=== PATIENT | male | born 1945 | race Caucasian/White ===

== ENCOUNTER 2021-05-31 16:06 | Inpatient (IN) | payer MEDICARE, SELFPAY ==
[~2021-05-31] VITALS: Ht 170.2 cm; Wt 107.5 kg
[2021-05-31 16:08] VITALS: BP 190/120
[2021-05-31] MEDS ORDERED: ALBUTEROL 0.083% 2.5 MG/3 ML NEBU INH ONE (16:10)
[2021-05-31] MEDS ORDERED: IPRATROPIUM 0.02% 0.5 MG/2.5 ML NEBU INH ONE (16:10)
[2021-05-31] MEDS ORDERED: methylPREDNISolone SS 125 MG/2 ML VIAL IVP ONE (16:10)
[2021-05-31] MEDS ORDERED: FUROSEMIDE 40 MG/4 ML VIAL IVP ONE (16:15)
--- NOTE | 2021-05-31 16:18 | NUR ---
[facility] GIVEN ORDERED ENCOURAGED PATIENT FOR INTERMITTENT DEEP BREATHING DURING THERAPY
--- NOTE | 2021-05-31 16:28 | NUR ---
POST THERAPY PATIENT REFUSED TO PARTICIPATE IN BIPAP TO MASK DR. AMY SANCHEZ NOTIFIED
--- NOTE | 2021-05-31 16:30 | NUR ---
75 Y/O MALE BIBA FROM CLINIC C/O RR DISTRESS X1DAY. PER FIRE PT HAD WHEEZING SPO2 86% ON RA PLACED ON 2 L NC SPO2 97%. EN ROUTE GIVEN ALBUTEROL TX, IV ESTABLISHED TO LEFT AC 20G. PER EMT PT HAD 5 BREATHING TX AT HOME PRIOR TO GOING TO CLINIC, GIVEN A BREATHING TX IN CLINIC PRIOR TO [facility] ARRIVAL. ON ASSESSMENT PT LUNGS ARE DIMINISHED AT THE BASES, WHEEZING THROUGHOUT. PT ON NON-REBREATHER 10L WITH MD, RT AND RN AT PT BEDSIDE FOR FURTHER ASSESSMENT. DENIES N/V. DENIES FEVER/CHILLS. PMH: COPD, CHF, ASTHMA, PACEMAKER VENTRICULAR PACED, HLD (SEE CHART FOR EXTENSIVE HX) ALLERGIES: AMPICILLIN
[2021-05-31 17:00] LABS: BASOPHILS % (AUTO) 0.1 % (0.0-2.0); HEMATOCRIT 27.4 % (36-52); HEMOGLOBIN 8.9 g/dL (12.0-18.0); LYMPHOCYTES # (AUTO) 0.2 K/uL (2.0-11.5); LYMPHOCYTES % (AUTO) 2.4 % (20.5-51.1); MEAN CORPUSCULAR HEMOGLOBIN 33 pg (27-31); MEAN CORPUSCULAR HGB CONC 33 g/dL (33-37); MEAN CORPUSCULAR VOLUME 100.7 fL (80-94); MONOCYTES # (AUTO) 0.3 K/uL (0.8-1.0); NEUTROPHILS # (AUTO) 7.3 K/uL (1.8-7.7); NEUTROPHILS % (AUTO) 93.5 % (42.2-75.2); PLATELET COUNT (AUTO) 98 K/uL (140-450); RED BLOOD CELL COUNT(AUTO) 2.72 MIL/uL (4.20-6.10); RED CELL DISTRIBUTION WIDTH 17.6 % (11.6-13.7); WHITE BLOOD COUNT (AUTO) 7.8 K/uL (4.8-10.8)
[2021-05-31 17:14] LABS: ALBUMIN 3.4 g/dL (3.4-5.0); ANION GAP 15.2 (8-16); ASPARTATE AMINOTRANSFERASE 39 U/L (15-37); CARBON DIOXIDE 25.3 mmol/L (21-32); CHLORIDE 107 mmol/L (98-107); GLUCOSE 173 mg/dL (74-106); POTASSIUM 5.5 mmol/L (3.5-5.1); SODIUM SERUM 142 mmol/L (136-145); TOTAL BILIRUBIN 0.3 mg/dL (0.0-1.0)
[2021-05-31 17:15] LABS: UREA NITROGEN, BLOOD 72 mg/dL (7-18)
--- NOTE | 2021-05-31 17:23 | NUR ---
OTILIA made aware of critical Trop and BUN
[2021-05-31] MEDS ORDERED: ASPIRIN 81 MG TAB.CHEW PO ONE (17:30)
--- NOTE | 2021-05-31 17:30 | NUR ---
Note kinjal in EDM - 05/31/21 at 1746 by [facility] Patient will be admitted to care of Dr Ladd. Admited to ICU. Will go to room 02. Belongings list completed. Report to Erick RINCON. All valuables and belongings with pt at this time.
[2021-05-31] MEDS ORDERED: HEPARIN PER PHARMACY MC STA ×2 (17:35→18:07)
[2021-05-31 17:45] VITALS: BP 117/76
--- NOTE | 2021-05-31 17:45 | NUR ---
RT at bedside to place pt on BiPap at this time
--- NOTE | 2021-05-31 17:51 | NUR ---
Pharmacy called for Heparin drip indication, per ERMD drip indication ACS
[2021-05-31] MEDS ORDERED: HEPARIN PER PHARMACY MC PRN ×3 (17:55→18:50)
[2021-05-31 18:37] VITALS: BP 117/76
[2021-05-31 18:41] LABS: PROTHROMBIN TIME 9.9 secs (10.8-13.4)
[2021-05-31] MEDS ORDERED: hePARIN / DEXT 5% PREMIX 250 ML IV SCH (18:55)
--- NOTE | 2021-05-31 19:19 | NUR ---
Pt report given to Chaparro RINCON. Transfer of care at this time.
--- NOTE | 2021-05-31 20:00 | NUR ---
Contacted pharmacy for correct heparin dosage. Verified patient's weight 108kg. AWaiting for adjusted dose per pharmacy protocol.
--- NOTE | 2021-05-31 20:56 | NUR ---
Received a callback from pharmacy, per pharmacist to start bolus at 5000units according to ideal body weight 83.2kg and to start drip at 1000units per hoour.
--- NOTE | 2021-05-31 21:00 | NUR ---
patient moved to tele, VS stable on tansport. Bedside hand-off given to Noble RINCON.
[2021-05-31] MEDS ORDERED: DOCUSATE SODIUM 100 MG GELCAP PO PRN (21:55)
[2021-05-31] MEDS ORDERED: ONDANSETRON 4 MG/2 ML VIAL IM/IVP PRN (21:55)
[2021-05-31] MEDS ORDERED: POTASSIUM CHLORIDE 10 MEQ TABER PO PRN (21:55)
[2021-05-31] MEDS ORDERED: ZOLPIDEM 5 MG TAB PO PRN (21:55)
[2021-05-31] MEDS ORDERED: guaiFENesin DM 200/20 MG-10 ML 10 ML UDC PO PRN (21:55)
[2021-05-31] MEDS ORDERED: ACETAMINOPHEN 325 MG TAB PO PRN (21:55)
[2021-05-31] MEDS ORDERED: SODIUM ZIRCONIUM CYCLOSILICATE 10 GM POWD.PACK PO SCH (22:00)
[2021-05-31] MEDS: FUROSEMIDE 20 MG/2 ML VIAL IVP SCH (22:05)
[2021-05-31] MEDS ORDERED: ALBUTEROL SULFATE/IPRATROPIU 3 ML SOL IH PRN (22:05)
[2021-05-31] MEDS ORDERED: cefTRIAXone 1,000 MG VIAL ONE (22:51)
[2021-06-01] VITALS: BP 127/83
--- NOTE | 2021-06-01 01:33 | NUR ---
Notified by LAB that TROPONIN is 17.77. Text-Notified Dr. East. VS: 127/83, 94, 97.8, 18.
[2021-06-01 03:10] LABS: BASOPHILS % (AUTO) 0.1 % (0.0-2.0); HEMATOCRIT 25.9 % (36-52); HEMOGLOBIN 8.4 g/dL (12.0-18.0); LYMPHOCYTES # (AUTO) 0.1 K/uL (2.0-11.5); LYMPHOCYTES % (AUTO) 2.6 % (20.5-51.1); MEAN CORPUSCULAR HEMOGLOBIN 33 pg (27-31); MEAN CORPUSCULAR HGB CONC 33 g/dL (33-37); MEAN CORPUSCULAR VOLUME 100.2 fL (80-94); MONOCYTES # (AUTO) 0.2 K/uL (0.8-1.0); MONOCYTES % (AUTO) 4.3 % (1.7-9.3); NEUTROPHILS # (AUTO) 5.3 K/uL (1.8-7.7); PLATELET COUNT (AUTO) 87 K/uL (140-450); RED BLOOD CELL COUNT(AUTO) 2.59 MIL/uL (4.20-6.10); RED CELL DISTRIBUTION WIDTH 17.4 % (11.6-13.7); WHITE BLOOD COUNT (AUTO) 5.7 K/uL (4.8-10.8)
[2021-06-01 03:36] LABS: ANION GAP 12.7 (8-16); CARBON DIOXIDE 27.6 mmol/L (21-32); CHLORIDE 107 mmol/L (98-107); CREATININE 1.9 mg/dL (0.6-1.3); GLUCOSE 175 mg/dL (74-106); POTASSIUM 5.3 mmol/L (3.5-5.1); SODIUM SERUM 142 mmol/L (136-145)
[2021-06-01 03:37] LABS: UREA NITROGEN, BLOOD 72 mg/dL (7-18)
[2021-06-01] MEDS: hePARIN / DEXT 5% PREMIX 250 ML IV SCH ×3 (03:58→17:21)
[2021-06-01 04:51] LABS: CHOL/HDL RATIO 3.4 (1-4.5); MAGNESIUM 2.1 mg/dL (1.8-2.4); PHOSPHORUS 4.1 mg/dL (2.5-4.9)
[2021-06-01 04:52] LABS: FREE T4 (FREE THYROXINE) 0.97 ng/dL (0.76-1.46); THYROID STIMULATING HORMONE 0.49 uIU/mL (0.34-3.74)
[2021-06-01] MEDS: HYDROcodone/APAP 7.5/325 MG 1 TAB PO PRN ×4 (06:09→21:59)
[2021-06-01] MEDS: ALBUTEROL SULFATE/IPRATROPIU 3 ML SOL IH SCH ×3 (07:45→19:23)
[2021-06-01] MEDS ORDERED: MORPHINE SULFATE 4 MG/ML SYR IVP PRN (07:45)
[2021-06-01 08:00] VITALS: BP 136/77
--- NOTE | 2021-06-01 08:00 | NUR ---
RECEIVED PATIENT, AOX4, VPACED, RESPIRATIONS EVEN AND UNLABORED ON 3L NC. EXPERIENCES DYSPNEA ON EXERTION, INCREASED TO 4L FOR COMFORT. PATIENT REPORTS PAIN IN LOWER BACK, RATED 9/10, PRN MEDICATION GIVEN. SITTING IN CHAIR. +2 EDEMA NOTED IN BILATERAL BASES. HEPARIN GTT INFUSING AT 11.8 ML/HOUR, NO SIGNS OF BLEEDING. NEXT PTT AT 10AM. WILL CONTINUE TO MONITOR.
[2021-06-01] MEDS: FUROSEMIDE 20 MG/2 ML VIAL IVP SCH (08:10)
[2021-06-01] MEDS: PANTOPRAZOLE 40 MG TABEC PO SCH (08:10)
--- NOTE | 2021-06-01 09:17 | NUR ---
PATIENT HAS BEEN SCREENED AND CATEGORIZED MODERATE NUTRITION RISK. PATIENT WILL BE SEEN WITHIN 3-5 DAYS OF ADMISSION. [address]
--- NOTE | 2021-06-01 10:00 | NUR ---
RESTING COMFORTABLY IN BED, DENIES SOB. CLARIFIED WITH DR HUDSON AND DR RIVAS, CONTACT CENTER REP TO CONTINUE HEPARIN GTT DESPITE PLATELET COUNT BEING LOW. DR RIVAS WILL EVALUATE WHEN HE COMES IN TODAY.
[2021-06-01 11:03] LABS: APPEARANCE,URINE CLEAR (CLEAR); BILIRUBIN,URINE NEGATIVE (NEGATIVE); BLOOD, URINE NEGATIVE (NEGATIVE); COLOR,URINE YELLOW (YELLOW); LEUKOCYTE ESTERASE ,URINE NEGATIVE (NEGATIVE); NITRITE, URINE NEGATIVE (NEGATIVE); PH,URINE 5.5 (5.0-9.0); UGLUCOSE NEGATIVE (NEGATIVE)
[2021-06-01 12:00] VITALS: BP 133/73
[2021-06-01 12:38] LABS: CALCIUM OXALATE CRYSTALS,UR None Seen /HPF (None Seen); COARSE GRANULAR CASTS,URINE None Seen /LPF (None Seen); FINE GRANULAR CASTS,URINE None Seen /LPF (None Seen); HYALINE CASTS, URINE None Seen /LPF (None Seen); OTHER CASTS, URINE None Seen /LPF (None Seen); OTHER CRYSTALS,URINE None Seen /HPF (None Seen); RBC,URINE 0-5 /HPF (0-5); RED BLOOD CELL CASTS,URINE None Seen /LPF (None Seen); TRICHOMONAS,URINE None Seen /HPF (None Seen); TRIPLE PHOSPHATE CRYSTAL,UR None Seen /HPF (None Seen); URIC ACID CRYSTALS,URINE None Seen /HPF (None Seen); URINE AMORPHOUS URATE None Seen /HPF (None Seen); WAXY CASTS,URINE None Seen /LPF (None Seen); WBC,URINE 0-5 /HPF (0-5); YEAST,URINE None Seen /HPF (None Seen)
[2021-06-01 12:50] LABS: BARBITURATE, URINE NEGATIVE ng/ml (NEG <=200); BENZODIAZEPINE, URINE NEGATIVE ng/mL (NEG <=200); CANNABINOID, URINE NEGATIVE ng/mL (NEG <=50); COCAINE, URINE NEGATIVE ng/mL (NEG <=300); OPIATE, URINE POSITIVE ng/mL (NEG <=2000); PHENCYCLIDINE SCREEN,URINE NEGATIVE ng/mL (NEG <=25)
--- NOTE | 2021-06-01 13:02 | NUR ---
NOTIFIED BY LAB THAT TROPONIN WAS ELEVATED, DR RIVAS MADE AWARE.
--- NOTE | 2021-06-01 13:45 | NUR ---
DC PLANNIN YRS OLD MALE PATIENT WAS ADMITTED FROM HOME WITH A DX OF NSTEMI M ACUTE CHF, AND COPD . PATIENT HAS A HX OF COPD ASTHMA , CKD WITH PACEMAKER AND HTN. CXR SHOWED LOW LUNG VOLUME WITH PERIHILAR EDEMA/INFILTRATES. RAPID COVID TEST NEGATIVE. ADMINISTERED HEPARIN DRIP, IV ABX ROCEPHIN AND LASIX IV. CONSULTED WITH CARDIO AND NEPHRO. CALLED [place] [phone] LEFT A MESSAGE FOR CM. DC PLAN TO TRANSFER TO [facility] WHEN BED AVAILABLE. Addendum: 06/01/21 at 1411 by Kristie Santos RN DC PLANNING: CALLED [facility] [phone] SPOKE WITH ANTONIO NOTCHING PRESS OPERATOR STATED RECEIVED ALL THE REQUEST FOR HIGHER LEVEL OF CARE. PROVIDE UNIT NUMBER AND MINA RIVAS'S CELL PHONE FOR [facility] . GAVIN WILL BE THE CM AND WILL ARRANGE THE TRANSFER. ANTONIO PROVIDE THE AUTH # [id number] FOR HOSPITAL STAY. NOTIFIED PATIENT , TOI RINCON AND DR RIVAS. CM TO FOLLOW Addendum: 06/01/21 at 1458 by Kristie Santos RN DC PLANNING: SPOKE WITH PATIENT REGARDING TRANSFER TO [facility]. PT STATED PREFERRED TO GO TO [facility] IF THEY DON'T HAVE A BED HE RATHER STAY AT [facility]. NOTIFIED [facility] THERAPY TEACHER NAME ANASTASIYA STATED WILL SUBMIT THE REQUEST TO KATY Chacon CM TO FOLLOW
[2021-06-01] MEDS: ECOTRIN 81 MG TABEC PO SCH (13:48)
[2021-06-01] MEDS: ATORVASTATIN 80 MG TAB PO SCH (13:48)
--- NOTE | 2021-06-01 14:00 | NUR ---
PATIENT COMPLAINS OF PAIN IN BACK, VISITORS AT BEDSIDE. PRN NORCO GIVEN WITH RELIEF. TOLERATING MEALS WELL WITH NO NAUSEA/VOMITING. OK TO CONTINUE HEPARIN GTT PER DR RIVAS. FOLLOWING UP ON PTT RESULTS
[2021-06-01 16:00] VITALS: BP 135/69
--- NOTE | 2021-06-01 16:01 | NUR ---
INCREASED HEPARIN GTT TO 15.1. PTT REDRAW AT 10 PM.
[2021-06-01] MEDS ORDERED: FUROSEMIDE 40 MG/4 ML VIAL IVP SCH (17:00)
[2021-06-01] MEDS: hydrALAZINE 10 MG TAB PO SCH (17:15)
[2021-06-01] MEDS: ISOSORBIDE DINITRATE 10 MG TAB PO SCH (17:16)
--- NOTE | 2021-06-01 17:55 | NUR ---
PATIENT IS DIURESING WELL, COMPLAINS OF PAIN IN BACK, PRN NORCO GIVEN. NO SOB AT THIS TIME. SITTING UP IN CHAIR. WILL CONT TO MONITOR.
[2021-06-01 18:28] LABS: APPEARANCE,URINE CLEAR (CLEAR); BILIRUBIN,URINE NEGATIVE (NEGATIVE); BLOOD, URINE NEGATIVE (NEGATIVE); COLOR,URINE YELLOW (YELLOW); LEUKOCYTE ESTERASE ,URINE NEGATIVE (NEGATIVE); NITRITE, URINE NEGATIVE (NEGATIVE); UGLUCOSE NEGATIVE (NEGATIVE)
[2021-06-01 18:47] LABS: ALBUMIN 3.3 g/dL (3.4-5.0); ANION GAP 13.7 (8-16); ASPARTATE AMINOTRANSFERASE 50 U/L (15-37); CARBON DIOXIDE 30.2 mmol/L (21-32); CHLORIDE 105 mmol/L (98-107); CREATININE 1.9 mg/dL (0.6-1.3); GLUCOSE 129 mg/dL (74-106); PHOSPHORUS 3.9 mg/dL (2.5-4.9); POTASSIUM 4.9 mmol/L (3.5-5.1); SODIUM SERUM 144 mmol/L (136-145); TOTAL BILIRUBIN 0.3 mg/dL (0.0-1.0)
[2021-06-01 18:50] LABS: UREA NITROGEN, BLOOD 73 mg/dL (7-18)
--- NOTE | 2021-06-01 19:20 | NUR ---
RECEIVED PT SITTING ON THE BEDSIDE CHAIR , AAOX4 , IV SITE INTACT AND PATENT , NO COMPLAIN MADE AT THIS TIME , ON HEP DRIP - NO S/X OF BLEEDING AT THIS TIME - U.O ON URINAL - CLEAR . URINAL / CALL LIGHT WITHIN REACH , ON O2 AT 4LPM/NC - O2 SAT WNL . ON SAFETY / FALL PREVENTION PROTOCOL . REMINDS HIM USE CALL LIGHT WHENEVER HE NEEDED HELP . ON TELE MONITOR - WILL CONT. TO MONITOR .
[2021-06-01 20:00] VITALS: BP 122/79
[2021-06-01] MEDS: FUROSEMIDE 40 MG/4 ML VIAL IVP SCH (20:30)
--- NOTE | 2021-06-01 21:00 | NUR ---
C/O VU - WILL MEDICATE , ON TELE MONITOR , WILL CONT. TO MONITOR . EDILBERTO A LOT Addendum: 06/02/21 at 0045 by Suzy Jarrell RN HE RATING THE PAIN 6 . - PAVAN
--- NOTE | 2021-06-01 21:35 | NUR ---
C/O NOSE BLEEDING , THERE IS 2 SHEET OF TISSUE PAPER AT BEDSIDE FULL OF BLOOD - HE SAID THAT IS FROM HIS NOSE - CHECK THE NOSE THERE IS MIN. BLEEDING , - WILL REFER TO - FOR JULIANNE WATCH . Addendum: 06/02/21 at 0126 by Suzy Jarrell RN PER DR. MCKAY - MENA HEP DRKT FOR A WHILE . WOF ACTIVE BLEEDING .- BP WNL . Addendum: 06/02/21 at 0127 by Suzy Jarrell RN EDILBERTO VALDIVIA - U.O - YELLOW CLEAR .
--- NOTE | 2021-06-01 23:08 | NUR ---
RELAYED TO DR. MCKAY THE LATEST aPTT - NO FURTHER ORDERS YET - HEP DRIP STILL ON HOLD - CHARGE NURSE AWARE ABOUT IT . WILL CONT. TO MONITOR
[2021-06-01] MEDS: carvediloL 6.25 MG TAB PO SCH (23:10)
--- NOTE | 2021-06-01 23:20 | NUR ---
BP RE CHECK -
[2021-06-02] VITALS: BP 98/67
--- NOTE | 2021-06-02 | NUR ---
ROUNDS , FOUND BED SIDE RAILS ON THE LEFT SIDE DOWN - I TRY SIDE RAIL LIFT UP - BUT PT IS REFUSE SIDE RAIL UP - EMPHASIZE TP PT THE IMPORTANCE OF SIDE RAILS UP - BUT STILL PT REFUSE SIDE RAIL UP - FOR CLOSELY WATCH . CALL LIGHT WITHIN REACH .
--- NOTE | 2021-06-02 01:22 | NUR ---
SLEEPING , CHEST RISE AND FALL EQUALLY , CALL LIGHT/ URINALS WITHIN REACH , WILL CONT. TO MONITOR . ON TELE MONITOR.
--- NOTE | 2021-06-02 02:57 | NUR ---
CALLED TO BEDSIDE BY RN. ASSESSED PT, NO WHEEZING ON AUSCULTATION, NO WOB, PT STATED HE FEELS HE IS HAVING HEADACHE. RN NOTIFIED.
--- NOTE | 2021-06-02 03:11 | NUR ---
ROUNDS , PT SLEEPING , CHEST RISE AND FALL EQUALLY , WILL CONT . TO MONITOR.
[2021-06-02 04:00] VITALS: BP 117/76
[2021-06-02] MEDS: HYDROcodone/APAP 7.5/325 MG 1 TAB PO PRN ×2 (04:56→08:26)
--- NOTE | 2021-06-02 04:56 | NUR ---
C/O VU , BP 117/76 - WILL MEDICATE FOR PAIN , THERE IS STREAKED BLOOD FROM THE NOSE - STILL FOR CLOSELY WATCH , STILL HEP. DRIP ON HOLD . Addendum: 06/02/21 at 0510 by Suzy Jarrell RN ROGERIO BROWNE.
[2021-06-02 05:44] LABS: BASOPHILS % (AUTO) 0.4 % (0.0-2.0); EOSINOPHILS % (AUTO) 0.3 % (0.0-4.0); HEMATOCRIT 27.4 % (36-52); HEMOGLOBIN 8.8 g/dL (12.0-18.0); LYMPHOCYTES # (AUTO) 0.5 K/uL (2.0-11.5); LYMPHOCYTES % (AUTO) 5.3 % (20.5-51.1); MEAN CORPUSCULAR HEMOGLOBIN 32 pg (27-31); MEAN CORPUSCULAR HGB CONC 32 g/dL (33-37); MEAN CORPUSCULAR VOLUME 100.7 fL (80-94); MONOCYTES # (AUTO) 0.7 K/uL (0.8-1.0); MONOCYTES % (AUTO) 7.9 % (1.7-9.3); NEUTROPHILS % (AUTO) 86.1 % (42.2-75.2); PLATELET COUNT (AUTO) 102 K/uL (140-450); RED BLOOD CELL COUNT(AUTO) 2.72 MIL/uL (4.20-6.10); WHITE BLOOD COUNT (AUTO) 9.2 K/uL (4.8-10.8)
[2021-06-02 05:55] LABS: ANION GAP 13.8 (8-16); CARBON DIOXIDE 31.9 mmol/L (21-32); CHLORIDE 103 mmol/L (98-107); CREATININE 1.9 mg/dL (0.6-1.3); GLUCOSE 125 mg/dL (74-106); POTASSIUM 4.7 mmol/L (3.5-5.1); SODIUM SERUM 144 mmol/L (136-145)
[2021-06-02 06:04] LABS: UREA NITROGEN, BLOOD 78 mg/dL (7-18)
--- NOTE | 2021-06-02 06:30 | NUR ---
BP 122/87 - WILL GIVE LASIX SLOWLY IV PUSH ORDERED - WILL CONT. TO MONITOR - CALL LIGHT WITHIN REACH , SITTING ON THE BEDSIDE CHAIR - PT SAID NO DIZZINESS .
[2021-06-02] MEDS: FUROSEMIDE 40 MG/4 ML VIAL IVP SCH (06:39)
--- NOTE | 2021-06-02 07:13 | NUR ---
GENEVIEVE CALLED ( PAT - THE MANAGER [employer] SAL[employer] ) JUST GOT THE LATEST V/S - BP 122/87 , CA 101 , RR 22 - O2 SAT 99% . T 98.8 .
--- NOTE | 2021-06-02 07:18 | NUR ---
ENDORSED - PT - STABLE .
--- NOTE | 2021-06-02 07:20 | NUR ---
RECEIVED REPORT FROM WIRE COILER MACHINE OPERATOR NURSE FOR CONTINUITY OF CARE. PT IS AWAKE AND ALERT. A&OX4. ON 4L O2 NC WITH BREATHING UNLABORED. AMBULATES INDEPENDENTLY. URINAL AT BEDSIDE FOR VOIDING. IVS ARE INTACT IN THE RIGHT HAND 24 GAUGE AND LEFT AC 20 GAUGE TKO. HEPARIN DRIP NO LONGER INFUSING PER WIRE COILER MACHINE OPERATOR NURSE LIFT MECHANIC DOCTOR STOPPED DRIP DUE TO NOSE BLEED. PT IS STABLE. PLAN OF CARE DISCUSSED.
--- NOTE | 2021-06-02 07:45 | NUR ---
RECEIVED CALL FROM ER TRANSPORT NURSE [facility]. PROVIDED REPORT AND INFORMED HIM OF THE HEPARIN DRIP BEING STOPPED AT 2300 PER GRADES 1 THROUGH 6 TEACHER NURSE. HE STATED HE MAY NOT NEED TO ACCOMPANY PT ON TRANSPORT, ONLY MEDIC. WILL CALL BACK WITH ESTIMATED TIME OF ARRIVAL. PT WAS ACCEPTED TO BED [address] [facility].
[2021-06-02 08:00] VITALS: BP 118/76
--- NOTE | 2021-06-02 08:00 | NUR ---
RECEIVED CALL FROM ER NURSE FROM [facility] THAT THEY ARE ON THEIR WAY TO ARRIVE IN 20 MINUTES.
[2021-06-02 08:08] LABS: T4 (THYROXINE) 6.3 ug/dL (4.5-12.0)
[2021-06-02] MEDS: PANTOPRAZOLE 40 MG TABEC PO SCH (08:25)
[2021-06-02] MEDS: ECOTRIN 81 MG TABEC PO SCH (08:25)
[2021-06-02] MEDS: ISOSORBIDE DINITRATE 10 MG TAB PO SCH (08:25)
[2021-06-02] MEDS: ATORVASTATIN 80 MG TAB PO SCH (08:25)
[2021-06-02] MEDS: carvediloL 6.25 MG TAB PO SCH (08:25)
[2021-06-02] MEDS: hydrALAZINE 10 MG TAB PO SCH (08:36)
--- NOTE | 2021-06-02 08:41 | NUR ---
DC PLANNING: CALL FROM MCKENZIE LEAL ON [facility], PATIENT HAS BEEN ACCEPTED TO [facility], ROOM 605, CALL RECEIVED BY ELVIS THAT AMBULANCE TRANSPORT WILL BE ARRIVING IN FIVE MINUTES. NO NUMBER GIVEN TO CALL REPORT, CM WAS ABLE TO FIND [facility] NUMBER VIA [employer] OF [phone], CALLED NUMBER TO MAKE SURE IT'S ACCURATE, NUMBER GIVEN TO ABDI FOR F/U ON CALLING REPORT. CM WILL FOLLOW.
[2021-06-02 08:52] VITALS: BP 118/76
--- NOTE | 2021-06-02 09:10 | NUR ---
PT WAS PICKED UP BY [facility] ACCOMPANIED BY RN. PT IS AWAKE AND ALERT. SPEAKING APPROPRIATELY. VS ARE STABLE. DISCHARGE INSTRUCTIONS WERE PROVIDED AND PT VERBALIZED UNDERSTANDING. BREATHING UNLABORED ON 4L O2 NC. SKIN IS INTACT AND WARM. IVS ARE IN PLACE IN THE RIGHT HAND 24 GAUGE AND LEFT AC 20 GAUGE SALINE LOCKED. PT IS STABLE. ST ON TELE MONITOR, HR 108. REPORT GIVEN TO RN FOR TRANSPORT. ID BANDS REMOVED.
--- NOTE | 2021-06-02 09:15 | NUR ---
REPORT GIVEN TO BRITT AT [facility], BED 605. PHONE NUMBER IS [phone]. ALL QUESTIONS ANSWERED.
--- NOTE | 2021-06-02 09:31 | NUR ---
CALLED , JULISSA MCDUFFIE, AND INFORMED HER OF THE TRANSFER TO [facility]. PROVIDED HER WITH BED NUMBER [id number] AND PHONE NUMBER TO [place]. JULISSA [phone].
== END 2021-06-02 09:10 | disposition short-term general hospital (02) | DRG 280 ==
LOC: MED 16:06 → MTU 18:20
PROVIDERS: ADMIT Family Medicine; ATTEND Family Medicine
DX: I21.4 Non-ST elevation (NSTEMI) myocardial infarction (principal); I50.43 Acute on chronic combined systolic (congestive) and diastolic (congestive) heart failure; N17.0 Acute kidney failure with tubular necrosis; J96.01 Acute respiratory failure with hypoxia; J44.1 Chronic obstructive pulmonary disease with (acute) exacerbation; I13.0 Hypertensive heart and chronic kidney disease with heart failure and stage 1 through stage 4 chronic kidney disease, or unspecified chronic kidney disease; N18.4 Chronic kidney disease, stage 4 (severe); I42.9 Cardiomyopathy, unspecified; I35.0 Nonrheumatic aortic (valve) stenosis; Z96.643 Presence of artificial hip joint, bilateral; Z20.822 Contact with and (suspected) exposure to COVID-19; I25.10 Atherosclerotic heart disease of native coronary artery without angina pectoris; Z96.653 Presence of artificial knee joint, bilateral; D69.6 Thrombocytopenia, unspecified; R04.0 Epistaxis; N40.0 Benign prostatic hyperplasia without lower urinary tract symptoms; D63.8 Anemia in other chronic diseases classified elsewhere; E78.2 Mixed hyperlipidemia; E87.5 Hyperkalemia; Z95.0 Presence of cardiac pacemaker; Z88.1 Allergy status to other antibiotic agents
CPT/HCPCS: 36415; 71045; 76770; 80048; 80053; 80305; 81001; 81003; 82150; 82570; 82803; 83036; 83605; 83690; 83735; 83880; 84100; 84156; 84436; 84439; 84443; 84479; 84484; 85025; 85610; 85730; 87040; 87081; 93005; 94640; 96374; 96375; 99291; J0696; J1644; J1940; J2270; J2930; J7060; J7613; J7644; Q0092